=== PATIENT | female | born 1965 | race Caucasian/White ===

== ENCOUNTER 2018-11-26 13:04 | Emergency (ER) | payer MEDICARE, OTHER ==
[~2018-11-26] VITALS: Ht 180.3 cm; Wt 114.4 kg
[~2018-11-26 13:04] MED LIST: AMLODIPINE BESYL5 MG PO; BUPROPION HCL150 M2 PO; BUPROPION XL300 MG PO; CEFPODOXIME PR200 MG PO; CIPROFLOXACIN500 MG PO; DICLOFENAC SODI75 MG; DULOXETINE HCL60 MG PO; GABAPENTIN300 MG PO; HYDROCODON-ACE1 EAC8 PO; LEVEMIR FL100 UNIT/2 SQ; LISINOPRIL40 MG PO; LYRICA100 MG PO; METHADONE HCL10 MG PO; METOPROLOL SUC100 MG PO; METOPROLOL SUCC25 MG PO; NICORETTE4 M1 BUCCAL; NICOTINE PATCH1 EACH TD; NOVOLOG100 UNITS/ SQ; OMEPRAZOLE20 MG PO; REQUIP0.25 MG PO; ROPINIROLE HCL1 MG PO; TOPROL XL100 MG PO; TOPROL XL25 MG PO
--- OUTSIDE RECORDS SUMMARY | 2018-11-26 13:08 | XMS ---
PreManage Notification: MAIKEL RODRIGUEZ Security Machine [employer] Events No recent Security Events currently on file CRITERIA MET - [facility] - 2 Visits in 30 Days CARE PROVIDERS Lucia Loyd Current Roseanne OWUSU PHONE: Unknown Jhoan has no Care Guidelines for this patient. Wen VISIT COUNT (12 MO.) 2 [facility] TOTAL 2 NOTE: Visits indicate total known visits. ED/UCC VISIT TRACKING (12 MO.) 11/26/2018 13:04 [facility] [place] TYPE: Emergency COMPLAINT: - FLANK PAIN/URINE PROBLEM 11/03/2018 02:41 [facility] [place] TYPE: Emergency COMPLAINT: - BLOOD SUGAR PROBLEM DIAGNOSES: - Nicotine dependence, unspecified, uncomplicated - Other [facility] (current[facility] drug therapy - ST elevation (STEMI) myocardial infarction of unspecified site - Chest pain, unspecified - terminal manager (current) use of insulin - Type 2 diabetes mellitus without complications - Hypotension, unspecified - Hypothyroidism, unspecified - Essential (primary) hypertension - Allergy status to penicillin INPATIENT VISIT TRACKING (12 MO.) [facility] DIAGNOSES: - ST elevation (STEMI) myocardial infarction involving right coronary artery - Cardiogenic shock - Stemi - Elevated white blood cell count, unspecified - Encephalopathy, unspecified - Acidosis - Type 2 diabetes mellitus with ketoacidosis without coma - Hyperglycemia, unspecified - Acute kidney failure, unspecified [email or web address]
[2018-11-26] MEDS ORDERED: BACTRIM DS TAB1 EACH PO (15:26)
== END 2018-11-26 15:39 | disposition home or self-care (01) ==
LOC: ED 13:04
DX: N39.0 Urinary tract infection, site not specified (principal); R19.7 Diarrhea, unspecified; E11.9 Type 2 diabetes mellitus without complications; I10 Essential (primary) hypertension; E03.9 Hypothyroidism, unspecified; F17.200 Nicotine dependence, unspecified, uncomplicated; Z88.0 Allergy status to penicillin; Z79.4 Long term (current) use of insulin; Z79.899 Other long term (current) drug therapy
CPT/HCPCS: 80053; 81001; 83690; 85025; 87077; 87088; 87186; 96374; 96375; 99283-25; J0696; J2405; J7040

== ENCOUNTER 2024-07-11 06:15 | Day surgery (SDC) | payer MEDICARE, OTHER ==
[2024-07-09 15:04] VITALS: BP 113/64
[~2024-07-11] VITALS: Ht 180.3 cm; Wt 111.4 kg
[~2024-07-11 06:15] MED LIST changes: +ADULT ASPIRIN R81 MG PO; +AMIODARONE HCL100 MG PO; +BACTRIM DS TAB1 EACH PO; +BELBUCA600 MCG BC; +CARVEDILOL12.5 MG PO; +ELIQUIS2.5 MG PO; +FLONASE SENSIM5.9 ML NAS; +HUMALOG100 UNIT/2 SUB-Q; +LACTATED RINGER'S 1,000 ML IV SCH; +LANTUS100 UNITS/; +LISINOPRIL20 MG PO; -LISINOPRIL40 MG PO; +METFORMIN HCL500 MG PO; +MORPHINE SULFAT15 M1 PO; +MORPHINE SULFAT15 MG PO; +OZEMPIC0.25 MG/0. SUB-Q
[2024-07-11 06:58] VITALS: BP 117/69
[2024-07-11] MEDS ORDERED: LIDOCAINE HCL 1% 5 ML SDV INJ ONE (07:00)
[2024-07-11] MEDS ORDERED: HEParin SOD (PORCINE) 5,000 UNIT/0.5 ML SYR SUB-Q SCH (07:00)
[2024-07-11] MEDS ORDERED: FAMOTIDINE 20 MG/ 2 ML VIAL IV SCH (07:00)
[2024-07-11] MEDS ORDERED: IBLOOD GLUCOSE TEST STRIP 1 EA TEST VI PRN (07:00)
[2024-07-11] MEDS ORDERED: METOPROLOL SUC100 MG PO (07:02)
[2024-07-11] MEDS ORDERED: GABAPENTIN300 MG PO (07:07)
[2024-07-11] MEDS ORDERED: FARXIGA10 MG PO (07:07)
[2024-07-11] MEDS ORDERED: ROSUVASTATIN CA40 MG NG (07:09)
[2024-07-11] MEDS ORDERED: LIDOCAINE HCL 2% 5 ML SDV ONE (08:00)
[2024-07-11] MEDS ORDERED: ondansetron HCL 4 MG/2 ML VIAL ONE (08:00)
[2024-07-11] MEDS ORDERED: propofoL 200 MG/20 ML VIAL ONE (08:00)
[2024-07-11] MEDS ORDERED: KETOROLAC TROMETHAMINE 30 MG/ML VIAL ONE (08:00)
[2024-07-11] MEDS ORDERED: fentaNYL citrate 100 MCG/2 ML VIAL ONE (08:00)
--- NOTE | 2024-07-11 08:55 | NUR ---
07/11/24 0855 Greta Celeste 0846 PT TO PACU SLEEPY BUT AROUSABLE DENIES PAIN AND NAUSEA. BLOOD SUGAR 84 ON ADMIT TO PACU. PT MOSTLY AWAKE AND TALKING
[2024-07-11] MEDS ORDERED: METOCLOPRAMIDE HCL 10 MG/2 ML SDV IV PRN (09:00)
[2024-07-11] MEDS ORDERED: MORPHINE SULFATE 10 MG/ML VIAL IV PRN (09:00)
[2024-07-11] MEDS ORDERED: IBUPROFEN 800 MG TAB PO PRN (09:00)
[2024-07-11] MEDS ORDERED: ondansetron HCL 4 MG/2 ML VIAL IV PRN (09:00)
[2024-07-11] MEDS ORDERED: ondansetron HCL 4 MG TAB PO PRN (09:00)
[2024-07-11] MEDS ORDERED: LACTATED RINGER'S 1,000 ML IV SCH (09:00)
[2024-07-11] MEDS ORDERED: NALOXONE HCL 0.4 MG SYR IV PRN (09:00)
[2024-07-11] MEDS ORDERED: FAMOTIDINE 20 MG TAB PO PRN (09:00)
[2024-07-11] MEDS ORDERED: MAGNESIUM HYDROXIDE/AL HYDROX 30 ML CUP PO PRN (09:00)
[2024-07-11] MEDS ORDERED: HYDROCODONE/ACETA 5/325 TAB PO PRN (09:00)
[2024-07-11] MEDS ORDERED: PROCHLORPERAZINE EDISYLATE 10 MG/2 ML VIAL IV PRN (09:00)
[2024-07-11 09:19] VITALS: BP 153/77
--- NOTE | 2024-07-16 12:43 | OR ---
[facility] [address] [place], [place] [address] Signed DATE OF OPERATION: 07/11/2024 SURGEON: Vik Hector MD PREOPERATIVE DIAGNOSES: 1. Postmenopausal bleeding. 2. Endometrial polyp. POSTOPERATIVE DIAGNOSES: 1. Postmenopausal bleeding. 2. Endometrial polyp. PROCEDURE: 1. Hysteroscopy. 2. Resection of polyps. ANESTHESIA: MAC. ESTIMATED BLOOD LOSS: Minimal. DRAINS: None. INDICATIONS AND FINDINGS: The patient is a 58-year-old female who has had some abnormal bleeding for the last few months. Endometrial biopsy actually revealed a polyp. At the time of surgery, exam under anesthesia was normal. At the time of hysteroscopy, the cavity appeared atrophic except for a large anterior polyp. DESCRIPTION OF PROCEDURE: The patient was prepped and draped in the dorsal lithotomy position. A weighted speculum was placed. The anterior lip of the cervix was visualized and grasped with a single-tooth tenaculum. The cavity sounded to 9 cm. The endocervical canal was then dilated to a #8 dilator. The MyoSure device was placed and the cavity evaluated. The MyoSure Reach was introduced and the polyp removed completely without any difficulty. Inspection of the cavity afterwards showed no evidence of any remaining polyps or other abnormality. The procedure was terminated. The tenaculum was removed from the anterior cervix. There was no evidence of any ongoing bleeding. The patient was taken to the Electronically Signed By: VIK HECTOR MD 07/16/24 1243 PATIENT NAME: MAIKEL RODRIGUEZ OPERATIVE REPORT DATE OF : 69 REPORT #: [id number] PHYSICIAN: VIK HECTOR MD PCP: KATIA DANIELS MD REPORT IS CONFIDENTIAL AND NOT TO BE RELEASED WITHOUT AUTHORIZATION [facility] [address] [place] [address] [place], [place] [address] Signed recovery room in good condition. All sponge and needle counts were correct. MD ROBERT Gimenez/LIT /[id number] Copies: ~ Electronically Signed By: VIK HECTOR MD 07/16/24 1243 PATIENT NAME: MAIKEL RODRIGUEZ OPERATIVE REPORT DATE OF : 69 REPORT #: [id number] PHYSICIAN: VIK HECTOR MD PCP: KATIA DANIELS MD REPORT IS CONFIDENTIAL AND NOT TO BE RELEASED WITHOUT AUTHORIZATION
== END 2024-07-11 09:30 | disposition home or self-care (01) ==
LOC: DS 06:15
PROVIDERS: ATTEND Obstetrics & Gynecology
PROC: 0UB98ZZ Excision of Uterus, Via Natural or Artificial Opening Endoscopic (ICD-10-PCS; principal; 2024-07-11 08:40)
DX: N84.0 Polyp of corpus uteri (principal); N95.0 Postmenopausal bleeding; E11.51 Type 2 diabetes mellitus with diabetic peripheral angiopathy without gangrene; I10 Essential (primary) hypertension; I25.2 Old myocardial infarction; Z79.84 Long term (current) use of oral hypoglycemic drugs; Z88.2 Allergy status to sulfonamides
CPT/HCPCS: 00952; 88305; J1644; J1885; J2001; J2405; J2704; J3010; J7121

== ENCOUNTER 2024-08-20 05:48 | Day surgery (SDC) | payer MEDICARE, OTHER ==
[2024-06-28 13:27] VITALS: BP 134/83
[2024-08-14 15:28] VITALS: BP 121/76
--- NOTE | 2024-08-14 15:31 | NUR ---
PT HAVING STRESS TEST AT [facility] ON 08-15-24 TO SEE HOW THINGS ARE GOING WITH HER HEART. ASK PT TO HAVE [facility] SEND COPY OF RESULTS TO THE FAX NUMBER. PT RENATOD SHE WOULD.
[~2024-08-20] VITALS: Ht 180.3 cm; Wt 109.1 kg
[~2024-08-20 05:48] MED LIST changes: +CEFAZOLIN SODIUM 2 GM/20 ML SYR IV SCH; +FARXIGA10 MG PO; +HYDROCODONE/ACETA 5/325 TAB PO PRN; +HYDROmorphone HCL 1 MG/ML SYR IV PRN; +IBLOOD GLUCOSE TEST STRIP 1 EA TEST VI PRN; +LIDOCAINE HCL 1% 5 ML SDV INJ ONE; +ROSUVASTATIN CA40 MG NG; +ondansetron HCL 4 MG/2 ML VIAL IV PRN
[2024-08-20 05:59] VITALS: BP 152/81
[2024-08-20] MEDS ORDERED: LIDOCAINE HCL 1% 30 ML SDV ONE (06:58)
[2024-08-20] MEDS ORDERED: CEFAZOLIN SODIUM 2 GM/20 ML SYR IV SCH (07:00)
[2024-08-20] MEDS ORDERED: IBLOOD GLUCOSE TEST STRIP 1 EA TEST VI PRN ×2 (07:00→08:00)
[2024-08-20] MEDS ORDERED: LIDOCAINE HCL 1% 5 ML SDV INJ ONE (07:00)
[2024-08-20] MEDS ORDERED: propofoL 200 MG/20 ML VIAL ONE ×3 (07:15→08:06)
[2024-08-20] MEDS ORDERED: LIDOCAINE HCL 2% 5 ML SDV ONE (07:15)
[2024-08-20] MEDS ORDERED: ondansetron HCL 4 MG/2 ML VIAL IV PRN ×2 (07:45→08:00)
[2024-08-20] MEDS ORDERED: OXYCODONE/APAP 5/325 TAB PO PRN (07:45)
[2024-08-20] MEDS ORDERED: MORPHINE SULFATE 4 MG/ML VIAL IV PRN (07:45)
[2024-08-20] MEDS ORDERED: ACETAMINOPHEN 1,000 MG/100 ML VIAL ONE (07:47)
[2024-08-20] MEDS ORDERED: HYDROmorphone HCL 1 MG/ML SYR IV PRN (08:00)
[2024-08-20] MEDS ORDERED: PROCHLORPERAZINE EDISYLATE 10 MG/2 ML VIAL IV PRN (08:00)
[2024-08-20] MEDS ORDERED: droPERidol 5 MG/2 ML VIAL IV PRN (08:00)
[2024-08-20] MEDS ORDERED: fentaNYL citrate 50 MCG/ML SDV IV PRN (08:00)
[2024-08-20] MEDS ORDERED: NALOXONE HCL 0.4 MG SYR IV PRN (08:00)
[2024-08-20 09:45] VITALS: BP 151/85
--- NOTE | 2024-08-20 10:20 | NUR ---
[facility] SLEEPY. 0842 BLOOD SUGAR 88. 0850 SITTING UP IN BED SIPPING ON WATER. NO C/O'S. 0910 REFILLED WATER. 0930 UP TO BATHROOM WITH ONE PERSON ASSIST. VOIDED 50ML CLEAR YELLOW URINE. 0940 SITTING AT BEDSIDE GETTING DRESSED. 0950 LEFT VIA W/C.
== END 2024-08-20 09:50 | disposition home or self-care (01) ==
LOC: DS 05:48
PROVIDERS: ATTEND Urology
PROC: 0TVD7ZZ Restriction of Urethra, Via Natural or Artificial Opening (ICD-10-PCS; principal; 2024-08-20 07:30)
DX: N36.42 Intrinsic sphincter deficiency (ISD) (principal); N39.46 Mixed incontinence; E11.51 Type 2 diabetes mellitus with diabetic peripheral angiopathy without gangrene; I10 Essential (primary) hypertension; I25.2 Old myocardial infarction; F17.210 Nicotine dependence, cigarettes, uncomplicated; Z79.01 Long term (current) use of anticoagulants; Z79.4 Long term (current) use of insulin; Z79.84 Long term (current) use of oral hypoglycemic drugs; Z79.899 Other long term (current) drug therapy; Z88.2 Allergy status to sulfonamides; Z90.49 Acquired absence of other specified parts of digestive tract; Z89.422 Acquired absence of other left toe(s)
CPT/HCPCS: 00910; J0131; J0690; J2001; J2704; J7121; L8606